=== PATIENT | male | born 2000 | race Caucasian/White ===

== ENCOUNTER 2023-09-03 13:56 | Emergency (ER) | payer MEDICAID ==
[2023-09-03] MEDS ORDERED: Sodium Chloride 0.9% 10 ML Syringe FLUSH PRN (13:59)
[2023-09-03] MEDS ORDERED: levETIRAcetam 2,000 MG in Sodium Chloride 0.9% 100 ML IV ONE (14:01)
[2023-09-03] MEDS ORDERED: Ondansetron 4 MG/2 ML SDV IVPUSH ONE (14:19)
[2023-09-03] MEDS ORDERED: Meclizine 25 MG Tab PO ONE (14:19)
[2023-09-03] MEDS ORDERED: Sodium Chloride 0.9% 1,000 ML IV SCH (14:30)
[2023-09-03 14:38] LABS: BLOOD UREA NITROGEN,BUN 18 mg/dL (7-18); CALCIUM 9.4 mg/dL (8.6-10.2); CARBON DIOXIDE,CO2 26 mmol/L (21-32); CHLORIDE,CL 100 mmol/L (100-110); CREATININE 0.9 mg/dL (0.70-1.30); ESTIMATED GFR 123 mL/min (>60); GLUCOSE RANDOM 119 mg/dL (80-116); POTASSIUM,K 3.9 mmol/L (3.5-5.3); SODIUM,NA 139 mmol/L (135-145)
[2023-09-03 14:44] LABS: A/G RATIO 1.1; ALANINE AMINOTRANSFERASE,ALT 56 U/L (12-36); ALBUMIN 4.2 g/dL (3.5-5.2); ALKALINE PHOSPHATASE 81 IU/L (56-112); ASPARTATE AMNIOTRANSFERASE,AST 30 IU/L (5-25); BILIRUBIN TOTAL 0.4 mg/dL (0.1-1.3); PROTEIN TOTAL,TP 8.1 g/dL (6.0-8.0)
[2023-09-03 14:47] LABS: BASOPHILS ABSOLUTE AUTO 0.1 x10-3/uL (0.0-0.3); BASOPHILS PERCENT AUTO 1.4 % (0.3-3.8); EOSINOPHILS ABSOLUTE AUTO 0.3 x10-3/uL (0.0-0.6); EOSINOPHILS PERCENT AUTO 2.9 % (0.1-6.8); HEMATOCRIT 48.7 % (38.3-50.1); HEMOGLOBIN 17.1 g/dL (12.9-17.7); LYMPHOCYTES ABSOLUTE AUTO 3.1 x10-3/uL (0.5-4.5); MEAN CORPUSCULAR HEMOGLOBIN 29.6 pg (27.0-33.3); MEAN CORPUSCULAR HGB CONC 35.1 g/dL (28.7-35.3); MEAN CORPUSCULAR VOLUME 84.4 fL (80.8-98.7); MEAN PLATELET VOLUME 8.3 fL (6.7-11.0); MONOCYTES ABSOLUTE AUTO 0.7 x10-3/uL (0.0-1.2); MONOCYTES PERCENT AUTO 7.5 % (5.5-15.2); NEUTROPHILS ABSOLUTE AUTO 4.7 x10-3/uL (1.7-6.9); NEUTROPHILS PERCENT AUTO 53.2 % (40.3-71.8); PLATELET COUNT,PLT 277 x10(3)uL (117-477); RED BLOOD CELL COUNT 5.77 x10(6)uL (3.90-5.90); RED CELL DISTRIBUTION WIDTH 13.2 % (12.4-15.0); WHITE BLOOD CELL COUNT,WBC 8.9 x10-3/uL (3.2-10.1)
[2023-09-03 15:00] LABS: TSH ULTRASENSITIVE 3.02 IU/mL (0.36-3.74)
[2023-09-03 15:03] LABS: ETHANOL BLOOD MEDICAL < 0.03 % (<0.03)
[2023-09-03] MEDS ORDERED: Ketorolac 30 MG/ML SDV IVPUSH ONE (15:54)
== END 2023-09-03 16:05 | disposition home or self-care (01) ==
LOC: FB.ED 13:56
DX: R55 Syncope and collapse (principal); R51.9 Headache, unspecified
CPT/HCPCS: 80053; 80307; 84443; 85025; 96361; 96374; 96375; 99284; A9270; J1885; J2405; J7030

== ENCOUNTER 2023-09-05 17:38 | Emergency (ER) | payer MEDICAID ==
[2023-09-05] MEDS ORDERED: predniSONE 20 MG Tab PO ONE (17:39)
[2023-09-05] MEDS ORDERED: Famotidine 20 MG/2 ML SDV IVPUSH ONE (18:31)
[2023-09-05] MEDS ORDERED: Sodium Chloride 0.9% 1,000 ML IV ONE (18:31)
[2023-09-05] MEDS ORDERED: Sodium Chloride 0.9% 10 ML Syringe FLUSH PRN (18:31)
[2023-09-05] MEDS ORDERED: diphenhydrAMINE 50 MG/ML SDV IVPUSH ONE (18:31)
[2023-09-05] MEDS ORDERED: methylPREDNISolone Sodium Succinate 125 MG/2 ML SDV IVPUSH ONE (18:31)
== END 2023-09-05 20:00 | disposition home or self-care (01) ==
LOC: FB.ED 17:38
DX: L27.0 Generalized skin eruption due to drugs and medicaments taken internally (principal); T36.0X5A Adverse effect of penicillins, initial encounter; Z72.0 Tobacco use
CPT/HCPCS: 96361; 96374; 96375; 99284; J1200; J2930; J3490; J7030; J7512